=== PATIENT | male | born 1995 | race Caucasian/White ===

== ENCOUNTER 2021-10-12 23:57 | Emergency (ER) | payer BC ==
[~2021-10-12] VITALS: Ht 165.1 cm; Wt 63.5 kg
[2021-10-13 00:21] VITALS: BP 153/84
--- NOTE | 2021-10-13 00:30 | ER.PDOC ---
General Chief Complaint: Requesting Medical Care Stated Complaint: SYNCOPE Time seen by MD: 00:13 Source: patient Exam Limitations: no limitations History of Present Illness Initial Comments This 26-year-old stated that he is was laying in bed and masturbating. Right after climax stated his right arm suddenly became numb feeling and scared and made him feel real anxious that he stood up and passed out. Patient stated that he was actually on the phone with his girlfriend and that she told him that feels completely totally back to normal was may be out for 5 to 6 minutes. Patient does not recall that. He states that he feels completely and totally back to normal. He stated this happened once before with the exact same scenario where he was masturbating and then passed out. Patient stated that happened about a month ago.His only chronic medical problems is cystic fibrosis but denies any complication with it at this time. Timing/Prior Episodes: single episode today Symptoms Prior to Episode: rapid heart beat, other (Masturbating) Precipitating Factors: standing, other (Stood up just after his climax) Loss of Consciousness: Prolonged (Minutes) (Unsure. However stated he was talking to his girlfriend on the phone when he was doing this and apparently she tells him that it lasted for 5 to 6 minutes) Location of Injury: None Current Symptoms: back to normal Prior symptoms/Treatment: Similar symptoms previous Past Medical History Medical History: other (Cystic fibrosis) Surgical History: no surgical history Social History Smoking: non-smoker Alcohol Use: none Drug Use: none Review of Systems All Other Systems: Reviewed and Negative Physical Exam General Appearance: No Apparent Distress, WD/WN HEENT: PERRL/EOMI, Normal ENT Inspection, TMs Normal, Pharynx Normal Neck: Non-Tender, Full Range of Motion, Supple, Normal Inspection Cardiovascular/Respiratory: Regular Rate, Rhythm, No M/R/G, Normal Peripheral Pulses, No JVD, Normal Breath Sounds, No Respiratory Distress Gastrointestinal: Normal Bowel Sounds, No Organomegaly, No Pulsatile Mass, Non Tender, Soft Extremities: Normal Range of Motion, Non-Tender, Normal Inspection, No Pedal Edema, No Calf Tenderness, Normal Capillary Refill Psychiatric: Alert, Oriented x 3 Cranial Nerves: Normal Hearing, Normal Speech, PERRL Coordination/Gait: Normal Finger to Nose, Normal Gait, Negative Romberg's Sign Motor/Sensory: No Motor Deficit, No Sensory Deficit, No Pronator Drift, Negative Babinski's Sign Skin: Normal Color, Warm/Dry Lymphatic: No Adenopathy Results/Orders Results/Orders Orders - PASQUALE FRAIRE MD Ekg-Routine (10/13/21 00:32) Cbc With Auto Diff (10/13/21 00:32) Comprehensive Metabolic Panel (10/13/21 00:47) Vital Signs Date Time Temp Pulse Resp B/P (MAP) Pulse Ox O2 Delivery O2 Flow Rate FiO2 10/13/21 00:21 98.5 105 16 10/13/21 00:21 98.5 105 16 99 10/13/21 00:21 98.5 105 16 153/84 (107) 99 Room Air Laboratory Tests Test 10/13/21 00:42 White Blood Count 14.0 10^3/uL (4.5-11.0) H Red Blood Count 4.76 10^6/uL (4.50-5.90) Hemoglobin 15.1 g/dL (13.9-16.3) Hematocrit 43.5 % (37.0-53.0) Mean Corpuscular Volume 91.4 fL (78-100) Mean Corpuscular Hemoglobin 31.7 pg (26-34) Mean Corpuscular Hemoglobin Concent 34.7 g/dL (33-36.5) Red Cell Distribution Width 11.8 % (11.5-14.5) Platelet Count 285 10^3/uL (150-400) Mean Platelet Volume 9.2 fL (7.8-11.0) Neutrophils (%) (Auto) 77.2 % (41.0-85.0) Lymphocytes (%) (Auto) 12.3 % (24.0-44.0) L Monocytes (%) (Auto) 8.9 % (5.0-12.0) Neutrophils # (Auto) 10.8 10^3/uL (1.8-7.7) H Lymphocytes # (Auto) 1.72 10^3/uL1 (1.0-4.8) Monocytes # (Auto) 1.3 10^3/uL (0.3-0.8) H Absolute Immature Granulocyte (auto 0.02 10^3 u/L (0-2) Absolute Eosinophils (auto) 0.2 10^3/uL (0.0-0.2) Immature Granulocytes % 0.10 % (0.00-0.50) Eosinophils % 1.2 % (0.0-5.0) Basophils % 0.3 % (0.0-0.2) H Basophils # 0.0 10^3/uL (0.0-0.1) Sodium Level 138 mmol/L (132-145) Potassium Level 3.3 mmol/L (3.6-5.2) L Chloride Level 102.0 mmol/L (96-109) Carbon Dioxide Level 25.1 mmol/L (20.0-32) Anion Gap 14.2 Blood Urea Nitrogen 12 mg/dL (7-18) Creatinine 0.96 mg/dL (0.59-1.40) Estimated GFR () 116.4 (>/=60) Est GFR (CKD-EPI)(Non-Afr Lithuanian) 96.2 (>/=60) BUN/Creatinine Ratio 12.0 Glucose Level 104 mg/dL (70-110) Calcium Level 8.6 mg/dL (8.4-10.5) Total Bilirubin 2.8 mg/dL (0.2-1.0) H Aspartate Amino Transferase (AST) 54 U/L (0-35) H Alanine Aminotransferase (ALT) 82 U/L (12-78) H Alkaline Phosphatase 118 U/L (50-136) Total Protein 7.5 g/dL (6.4-8.2) Albumin 4.1 g/dL (3.4-5.0) Globulin 3.4 Albumin/Globulin Ratio 1.205 Progress Progress EKG showed a sinus rhythm at 981 beats a minute with normal intervals normal axis no ST or T wave abnormalities it is a normal EKG.Metabolic panel following values low potassium at 3.3 and elevated is total bilirubin at 2.8 AST 54 ALT 82 also just mildly elevated white count of 14 I suspect this is elevated from his stress and anxiety hemoglobin and hematocrit are normal at 15.1/43.5 and platelets of normal at 285,000 ER DEPARTURE Departure Time of Disposition: 01:30 Disposition: 01 HOME / SELF CARE / HOMELESS Impression: Primary Impression: Micturition syncope Condition: Stable Referrals: PCP,UNKNOWN (PCP) PRIMARY CARE PROVIDER Duration or Time Spent with Pa: 15m Return to Work/School Can a patient return to work?: Yes Justification of Admit/Observ Is this patient coming directl: No Admit to Inpatient (Expected t: No Place in Outpatient Status for: No Place patient in Same Day Surg: No Place patient in outpatient/CL: No *Level of Care/Services Provid: OTHER Admit Criteria Met: NO Justification Content JUSTIFICATION FOR ADMISSION Instructions 1. Open link in [employer] Browser. [email or web address] 2. Copy and paste data needed to meet the Admit Criteria. 3. Modify and document the needful data to meet the Admit Criteria. PASQUALE FRAIRE MD Oct 13, 2021 00:30
[2021-10-13 00:53] LABS: BASOPHIL % 0.3 % (0.0-0.2); EOSINOPHIL # 0.2 10^3/uL (0.0-0.2); EOSINOPHIL % 1.2 % (0.0-5.0); LYMPHOCYTES # 1.72 10^3/uL1 (1.0-4.8); LYMPHOCYTES % 12.3 % (24.0-44.0); MEAN CORP HGB 31.7 pg (26-34); MONOCYTES # 1.3 10^3/uL (0.3-0.8); MONOCYTES % 8.9 % (5.0-12.0); NEUTROPHIL # 10.8 10^3/uL (1.8-7.7); NEUTROPHILS % 77.2 % (41.0-85.0); PLATELET COUNT 285 10^3/uL (150-400); RED CELL DISTRIBUTION WIDTH 11.8 % (11.5-14.5)
[2021-10-13 01:06] LABS: CARBON DIOXIDE 25.1 mmol/L (20.0-32)
--- NOTE | 2021-10-13 01:34 | PCM.EKG ---
[facility] Test Date: 2021-10-13 Test Time: 00:36:48 Pat Name: ZIYAD NEWMAN Department: Patient ID: [id number] Room: Gender: M [employer]: : 1995 Requested By: ABELINO FRAIRE Order Number: [id number] Reading MD: Abelino Fraire Measurements Intervals [place] Rate: 81 P: 56 [place]: 152 QRS: 65 QRSD: 106 T: 50 QT: 370 QTc: 430 Interpretive Statements Sinus rhythm No previous ECG available for comparison Electronically Signed On 10-13-2021 1:34:08 [employer] by Abelino Fraire Please click the below link to view image of tracing.
[2021-10-13 01:40] VITALS: BP 149/90
== END 2021-10-13 01:41 | disposition home or self-care (01) ==
LOC: ER 23:57
DX: R55 Syncope and collapse (principal); R39.198 Other difficulties with micturition
CPT/HCPCS: 36415; 80053; 85025; 93005; 99284